=== PATIENT | female | born 1955 | race Caucasian/White ===

== ENCOUNTER → 2021-01-24 | Outpatient (CLI) | payer BC | LOC: KOH-I 09:50 | DX: M25.512 Pain in left shoulder (principal); M19.012 Primary osteoarthritis, left shoulder; R93.7 Abnormal findings on diagnostic imaging of other parts of musculoskeletal system | CPT/HCPCS: 73030 ==

== ENCOUNTER 2021-05-29 22:44 | Emergency (ER) | payer BC ==
[2021-05-30 00:15] LABS: HEMOGLOBIN 12.1 gm/dl (12.3-15.3); RED BLOOD COUNT 4.27 M/UL (4.00-5.10)
[2021-05-30 00:39] LABS: BUN/CREATININE RATIO 32 (0-10)
[2021-05-30] MEDS ORDERED: Voltaren Gel 1% TOP (02:05)
== END 2021-05-30 02:00 | disposition home or self-care (01) ==
LOC: ER1 22:44
PROVIDERS: Physician Assistant Medical
DX: M25.551 Pain in right hip (principal); Z88.0 Allergy status to penicillin; Z88.2 Allergy status to sulfonamides; Z88.8 Allergy status to other drugs, medicaments and biological substances
CPT/HCPCS: 72131; 73502; 80053; 85025; 85379; 85610; 85730; 96372; 99284; J1100